=== PATIENT | male | born 1995 | race Caucasian/White ===

== ENCOUNTER 2019-01-08 08:54 | Emergency (ER) | payer SELFPAY ==
[2019-01-08 09:11] VITALS: BMI 24.4
[2019-01-08] MEDS ORDERED: SODIUM CHLORIDE 1,000 ML IV STA (09:26)
--- NOTE | 2019-01-08 09:30 | PDOC ---
History of Present Illness - General Chief Complaint: Pain Stated Complaint: VOMITING/DIARRHEA Time Seen by Provider: 01/08/19 09:22 History Source: Patient - History of Present Illness Timing/Duration: reports: constant Past History - Past Medical History Allergies/Adverse Reactions: Allergies Allergy/AdvReac Type Severity Reaction Status Date / Time No Known Allergies Allergy Verified 01/08/19 09:09 Home Medications: Ambulatory Orders Ondansetron HCl [Zofran] 4 mg PO Q8H #8 tablet 01/08/19 - Suicide/Smoking/Psychosocial Hx Smoking History: Never smoked Hx Alcohol Use: No Drug/Substance Use Hx: No Review of Systems - Review of Systems Constitutional: Yes: Weakness. No: Chills, Fever ABD/GI: Yes: Diarrhea, Nausea, Vomiting. No: Blood Streaked Bowels, Rectal Bleeding, Abdominal cramping, Tarry Stools *Physical Exam - Vital Signs Last Vital Signs Temp Pulse Resp BP Pulse Ox 98.6 F 107 H 18 133/65 96 01/08/19 09:08 01/08/19 09:08 01/08/19 09:08 01/08/19 09:08 01/08/19 09:08 - Physical Exam General Appearance: Yes: Appropriately Dressed. No: Apparent Distress HEENT: positive: Normal Voice Neck: positive: Supple Respiratory/Chest: negative: Respiratory Distress Gastrointestinal/Abdominal: positive: Normal Bowel Sounds, Soft. negative: Tender, Distended, Guarding Integumentary: positive: Dry, Warm Neurologic: positive: Fully Oriented, Alert, Normal Mood/Affect ED Treatment Course - LABORATORY CBC & Chemistry Diagram: 01/08/19 09:40 01/08/19 09:40 Medical Decision Making - Medical Decision Making 01/08/19 09:27 23-year-old male, denies any past medical history, here with nausea, vomiting and diarrhea since yesterday. Patient states has had numerous episodes of non- bloody vomitus and non-bloody watery diarrhea and now feels weak. No abdominal pain, fever or chills. Patient recently released from [facility]. Denies unusual food, sick contacts or antibiotic use See exam N/V/D M/l viral, no abd pain to suspect appy at this time Recently released from [facility] Exam remarkable for mildly lethargic and tachy to 107, abd benign -zofran -IVF -labs -reassess 01/08/19 10:52 Mild leukocytosis of 13, rest of labs unremarkable. On reassessment, patient reports feeling significantly better and was able to tolerate po here. Abdomen remains benign on repeat exam. Stable for discharge with supportive treatment. Strict return precautions given *DC/Admit/Observation/Transfer Diagnosis at time of Disposition: Nausea and vomiting Qualifiers: Vomiting type: vomiting of fecal matter Qualified Code(s): R11.13 - Vomiting of fecal matter Diarrhea Qualifiers: Diarrhea type: unspecified type Qualified Code(s): R19.7 - Diarrhea, unspecified - Discharge Dispostion Disposition: HOME Condition at time of disposition: Improved - Prescriptions Prescriptions: Ondansetron HCl [Zofran] 4 mg PO Q8H #8 tablet - Referrals - Patient Instructions Printed Discharge Instructions: Viral Gastroenteritis Additional Instructions: You possibly have a viral illness, which can run its course, before he gets better. Treatment is rest, maintaining adequate hydration and taking Zofran as needed for nausea. If symptoms persist and/or worsen, especially if you develop abdominal pain, please return to the ED - Post Discharge Activity
[2019-01-08 09:51] LABS: BASO % 0.1 % (0-2.0); EOS % 1.8 % (0-4.5); HEMOGLOBIN 15.3 GM/dL (11.7-16.9); LYMPH % 10.7 % (8-40); MCH 28.9 pg (25.7-33.7); MCHC 33.2 g/dl (32.0-35.9); MEAN PLT VOLUME 7.8 fl (7.5-11.1); MONO % 9.2 % (3.8-10.2); NEUT % 78.2 % (42.8-82.8); PLATELET COUNT 203 K/MM3 (134-434); RBC 5.28 M/mm3 (4.00-5.60); RDW 13.7 % (11.9-15.9); WHITE BLOOD COUNT 13.9 K/mm3 (4.0-10.0)
[2019-01-08 10:20] LABS: ALBUMIN 4.2 g/dl (3.4-5.0); BILIRUBIN,TOTAL 0.9 mg/dL (0.2-1); CALCIUM 9.2 mg/dL (8.5-10.1); CREATININE 0.8 mg/dL (0.55-1.3); POTASSIUM 3.9 mmol/L (3.5-5.1); TOT PROT 7.3 g/dl (6.4-8.2)
[2019-01-08 10:59] VITALS: BP 118/59; PULSE 87; TEMP 98
== END 2019-01-08 11:00 | disposition home or self-care (01) ==
LOC: JERFT 08:54
PROC: 3E0337Z Introduction of Electrolytic and Water Balance Substance into Peripheral Vein, Percutaneous Approach (ICD-10-PCS; principal; 2019-01-08)
DX: A08.4 Viral intestinal infection, unspecified (principal); B97.89 Other viral agents as the cause of diseases classified elsewhere
CPT/HCPCS: 36415; 80053; 85025; 99282-25; J7030

== ENCOUNTER 2019-06-23 19:13 | Emergency (ER) | payer OTHER ==
[2019-06-23 19:31] VITALS: BP 99/58; PULSE 121; TEMP 99.1; BMI 23.1
[2019-06-23] MEDS ORDERED: IBUPROFEN 600 MG TABLET (FP) PO ONE (19:58)
[2019-06-23] MEDS ORDERED: IBUPROFEN 400 MG TABLET (FP) PO ONE (19:59)
--- NOTE | 2019-06-23 20:01 | PDOC ---
History of Present Illness - General Chief Complaint: Wound Stated Complaint: ABSCESS Time Seen by Provider: 06/23/19 19:57 - History of Present Illness Initial Comments: 06/23/19 20:00 24-year-old male without comorbidities presents for evaluation of left buttock irritation x3 days without systemic symptoms. Past History - Past Medical History Allergies/Adverse Reactions: Allergies Allergy/AdvReac Type Severity Reaction Status Date / Time No Known Allergies Allergy Verified 06/23/19 19:31 Home Medications: Ambulatory Orders Ondansetron HCl [Zofran] 4 mg PO Q8H #8 tablet 01/08/19 Cephalexin [Keflex] 500 mg PO QID #40 capsule 06/23/19 Ibuprofen [Motrin -] 600 mg PO TID #30 tablet 06/23/19 Sulfamethoxazole/Trimethoprim [Bactrim Ds -] 1 tab PO BID #14 tablet 06/23/19 COPD: No - Immunization History Immunization Up to Date: Yes - Psycho Social/Smoking Cessation Hx Smoking History: Current every day smoker Have you smoked in the past 12 months: Yes Number of Cigarettes Smoked Daily: 7 Information on smoking cessation initiated: Yes Hx Alcohol Use: No Drug/Substance Use Hx: Yes Review of Systems - Review of Systems Constitutional: No: Fever *Physical Exam - Vital Signs Last Vital Signs Temp Pulse Resp BP Pulse Ox 99.1 F 121 H 18 99/58 L 100 06/23/19 19:28 06/23/19 19:28 06/23/19 19:28 06/23/19 19:28 06/23/19 19:28 - Physical Exam Comments: 06/23/19 20:00 There is about a 6 cm circumferential erythemic firm area with out fluctuance on the left buttocks Medical Decision Making - Medical Decision Making 06/23/19 20:00 Firm nonfluctuant area on the left buttocks with surrounding cellulitis. Will place on Bactrim and Keflex. Abscess forming encourage warm compresses p.o. antibiotics and general surgery follow-up Discharge - Discharge Information Problems reviewed: Yes Clinical Impression/Diagnosis: Abscess Condition: Stable Disposition: HOME - Admission No - Additional Discharge Information Prescriptions: Cephalexin [Keflex] 500 mg PO QID #40 capsule Ibuprofen [Motrin -] 600 mg PO TID #30 tablet Sulfamethoxazole/Trimethoprim [Bactrim Ds -] 1 tab PO BID #14 tablet - Follow up/Referral Referrals: Jerry See MD [Staff Physician] - - Patient Discharge Instructions Additional Instructions: Warm compresses 5-6 times a day. Please take the antibiotics and Motrin as directed. Return to the emergency room for worsening symptoms. Without fail in 2 to 3 days please follow-up with general surgery for further evaluation and treatment options. Your abscess will most likely need to be drained however it is not ready to be drained today. The warm compresses will help to bring the infection to the surface allowing the abscess to be drained. - Post Discharge Activity
== END 2019-06-23 20:07 | disposition home or self-care (01) ==
LOC: JERFT 19:13 → JER 19:13 → JERFT 20:07
DX: L02.31 Cutaneous abscess of buttock (principal); F17.210 Nicotine dependence, cigarettes, uncomplicated
CPT/HCPCS: 99281-25

== ENCOUNTER 2019-06-28 18:45 | Inpatient (IN) | payer OTHER ==
[2019-06-28 19:01] VITALS: BMI 23.1
[2019-06-28] MEDS ORDERED: VANCOMYCIN 1 GM in D5W (PRE-DOCKED) 1,000 MG/250 ML IVPB ONE (20:04)
--- NOTE | 2019-06-28 20:06 | PDOC ---
Attending Attestation - Resident Resident Name: Shannan Connolly - ED Attending Attestation I have performed the following: I have examined & evaluated the patient, The case was reviewed & discussed with the resident, I agree w/resident's findings & plan, Exceptions are as noted - HPI HPI: 06/28/19 20:05 24-year-old male presents with left buttocks abscess. He had been seen here in June 23 for the same abscess and had taken Keflex and Bactrim with no improvement. He still has pain and low-grade fevers - Physicial Exam PE: 06/28/19 20:06 Tall,slender 24 yo male p/e left buttocks abscess head ncat neck supple lungs cta b/l cvs [id number] abd nontender left buttocks 6cm x 5 cm indurated wound,+ erythematous and tender neuro axox3,no focal neuro deficits 06/28/19 20:32 - Medical Decision Making 06/28/19 20:10 pt has been taking keflex and bactrim for 6 days with no improvement in his abscess plan ; admit for IV antibiotics
[2019-06-28] MEDS ORDERED: VANCOMYCIN 1 GRAM (PRE-DOCKED) 1,000 MG/250 ML BAG IVPB ONE (20:10)
[2019-06-28] MEDS ORDERED: PIPERACILLIN/TAZOB 3.375 GM 3.375 GM/50 ML BAG IVPB ONE (20:11)
--- NOTE | 2019-06-28 20:13 | PDOC ---
History of Present Illness - General Chief Complaint: Wound Stated Complaint: ABCESS ON REAR-END Time Seen by Provider: 06/28/19 19:50 - History of Present Illness Initial Comments: 06/28/19 20:06 24 yo M PMH asthma, presenting with L buttock abscess. Notably, was here with same, started on Keflex and Bactrim, recommended to see surgeon outpatient. Patient reportedly taking Keflex and Bactrim without alleviation of symptoms, states that abscess has slightly increased in size. Has not seen a surgeon yet 2/2 insurance issues, but called his company today and now has multiple numbers. Endorses fevers and chills. Past History - Past Medical History Allergies/Adverse Reactions: Allergies Allergy/AdvReac Type Severity Reaction Status Date / Time No Known Allergies Allergy Verified 06/28/19 19:00 Home Medications: Ambulatory Orders Cephalexin [Keflex] 500 mg PO QID #40 capsule 06/23/19 Ibuprofen [Motrin -] 600 mg PO TID #30 tablet 06/23/19 Sulfamethoxazole/Trimethoprim [Bactrim Ds -] 1 tab PO BID #14 tablet 06/23/19 COPD: No - Immunization History Immunization Up to Date: Yes - Psycho Social/Smoking Cessation Hx Smoking History: Current every day smoker Have you smoked in the past 12 months: Yes Number of Cigarettes Smoked Daily: 12 Information on smoking cessation initiated: No Hx Alcohol Use: No Drug/Substance Use Hx: No Review of Systems - Review of Systems Able to Perform ROS?: Yes Constitutional: Yes: Chills, Fever. No: Diaphoresis, Weakness HEENTM: No: Recent change in vision, Double Vision, Tinnitus, Hearing Loss, Throat Swelling, Difficulty Swallowing Respiratory: No: Cough, Orthopnea, Shortness of Breath Cardiac (ROS): No: Chest Pain, Edema, Irregular Heart Rate, Chest Tightness ABD/GI: No: Constipated, Diarrhea, Nausea, Vomiting : No: Flank Pain Musculoskeletal: No: Back Pain, Muscle Weakness Neurological: No: Headache, Numbness, Tingling, Weakness, Dizziness *Physical Exam - Vital Signs Last Vital Signs Temp Pulse Resp BP Pulse Ox 99.8 F H 100 H 20 118/61 100 06/28/19 19:53 06/28/19 19:53 06/28/19 19:53 06/28/19 19:53 06/28/19 19:53 - Physical Exam Comments: 06/28/19 20:10 Gen: well-developed, well-nourished, mild distress Neuro: AAOX4, CN II-XII intact, FTN intact, EOMI, PERRLA, 5/5 strength, SILT HEENT: atraumatic, normocephalic Neck: trachea midline, supple CV: tachycardic, regular rhythm, no murmurs, rubs, or gallops Pulm: CTA b/l, no wheezing Abd: soft, non-distended, non-tender MSK: full ROM, intact pulses Extr: no edema, no deformities Skin: hot, dry, 5X6 cm hard, non-fluctuant, erythematous and tender abscess on L buttock ED Treatment Course - LABORATORY CBC & Chemistry Diagram: 06/28/19 20:39 06/28/19 20:39 Medical Decision Making - Medical Decision Making 06/28/19 20:13 Patient with abscess, failed outpatient treatment. - CBC, CMP - coags - T+S - blood cultures - UA/UC - vanc/piptazo - Ofirmev - admit 06/28/19 20:43 Patient with vomiting, giving Zofran 4mg 06/28/19 21:32 WBC 15.1. 06/28/19 23:01 EKG normal sinus at 96 bpm. Discharge - Discharge Information Problems reviewed: Yes Clinical Impression/Diagnosis: Abscess - Follow up/Referral - Patient Discharge Instructions - Post Discharge Activity
[2019-06-28] MEDS ORDERED: PIPERACILLIN/TAZOB 3.375 GM 3.375 GM in DEXTROSE 5%-WATER - 50 ML IVPB SCH (20:15)
[2019-06-28] MEDS ORDERED: ACETAMINOPHEN 1000 MG/100 ML VIAL (NON FORMULARY) IVPB ONE (20:39)
[2019-06-28] MEDS ORDERED: ONDANSETRON 4 MG/2 ML VIAL IVPUSH ONE (20:42)
[2019-06-28] MEDS ORDERED: ACETAMINOPHEN INJECTION 100 ML IVPB ONE (20:49)
[2019-06-28] MEDS ORDERED: ONDANSETRON 4 MG/2 ML VIAL ONE (20:49)
[2019-06-28 20:53] LABS: BASO % 0.6 % (0-2.0); EOS % 1.8 % (0-4.5); HEMATOCRIT 39.8 % (35.4-49); LYMPH % 15.6 % (8-40); MCH 28.6 pg (25.7-33.7); MCHC 32.7 g/dl (32.0-35.9); MEAN CELL VOLUME 87.3 fl (80-96); MEAN PLT VOLUME 7.4 fl (7.5-11.1); PLATELET COUNT 243 K/MM3 (134-434); RBC 4.56 M/mm3 (4.00-5.60); RDW 13.4 % (11.9-15.9); WHITE BLOOD COUNT 15.1 K/mm3 (4.0-10.0)
[2019-06-28 21:02] LABS: INR 1.18 (0.83-1.09)
[2019-06-28 21:24] LABS: ALBUMIN 3.7 g/dl (3.4-5.0); BILIRUBIN,TOTAL 0.3 mg/dL (0.2-1); BLOOD UREA NITROGEN 12.8 mg/dL (7-18); CALCIUM 8.8 mg/dL (8.5-10.1); CREATININE 1.1 mg/dL (0.55-1.3); TOT PROT 6.9 g/dl (6.4-8.2)
[2019-06-28] MEDS ORDERED: SODIUM CHLORIDE 0.9% 500 ML INFUS.BAG IV ONE (22:29)
[2019-06-28] MEDS ORDERED: SODIUM CHLORIDE 0.9% 1000 ML INFUS.BAG IV SCH (23:00)
--- NOTE | 2019-06-28 23:02 | PN ---
Teaching Attending Note Name of Resident: Praveena Lawrence ATTENDING PHYSICIAN STATEMENT I saw and evaluated the patient. I reviewed the resident's note and discussed the case with the resident. I agree with the resident's findings and plan as documented. SUBJECTIVE: 24-year-old male, Smoker with asthma presented with left buttock abscess. He was here on 06/13/2019 with a similar abscess and discharged on oral Keflex and Bactrim. It was recommended to him to see a surgeon outpatient for drainage But he did not follow-up. Patient reported compliance with Keflex and Bactrim without alleviation of his abscess. He states that his abscess has increased in size. OBJECTIVE: Last Vital Signs Temp Pulse Resp BP Pulse Ox 98.6 F 72 18 94/48 L 99 06/28/19 23:09 06/28/19 23:09 06/28/19 23:09 06/28/19 23:09 06/28/19 23:09 GENERAL: Well developed, well nourished. Awake and alert. No acute distress. HEENT: Normocephalic, atraumatic. PERRLA, EOMI. No conjunctival pallor. Sclera are non- icteric. Moist mucous membranes. Oropharynx is clear. NECK: Supple. Full ROM. No JVD. Carotid pulses 2+ and symmetric, without bruits. No thyromegaly. No lymphadenopathy. CARDIOVASCULAR: Regular rate and rhythm. No murmurs, rubs, or gallops. Distal pulses are 2+ and symmetric. PULMONARY: No evidence of respiratory distress. Lungs clear to auscultation bilaterally. No wheezing, rales or rhonchi. ABDOMINAL: Soft. Non-tender. Non-distended. No rebound or guarding. No organomegaly. Normoactive bowel sounds. MUSCULOSKELETAL Normal range of motion at all joints. No bony deformities or tenderness. No CVA tenderness. EXTREMITIES: Left buttock -fluctuant, Erythematous, Tender lesion. SKIN: Warm and dry. Normal capillary refill. No rashes. No jaundice. PSYCHIATRIC: Cooperative. Good eye contact. Appropriate mood and affect. Abnormal Lab Results 06/28/19 06/28/19 06/28/19 20:39 20:39 20:39 WBC 15.1 H MPV 7.4 L Absolute Neuts (auto) 11.3 H PT with INR 14.00 H INR 1.18 H Chloride 108 H Anion Gap 7 L AST 11 L Alkaline Phosphatase 39 L Imaging reviewed ASSESSMENT AND PLAN: 24-year-old male with sepsis secondary to left buttock abscess with surrounding cellulitis. Leukocytosis, tachycardia, low-grade fever. Lactic acid was normal. [facility] antibiotic therapy with vancomycin and Zosyn Infectious disease evaluation Surgery evaluation Ultrasound of left buttock to evaluate size of abscess Send A1c and HIV serology Advised smoking cessation otherwise would be difficult for wound to heal Heparin subcu for DVT prophylaxis
--- NOTE | 2019-06-28 23:29 | HP ---
CHIEF COMPLAINT: Abscess L buttock PCP: none HISTORY OF PRESENT ILLNESS: 24 y/o M w/ pmhx of asthma and R sided buttock abscess (4 years ago, drained at [facility]) presenting to ED compaining of L buttocks abscess. He was here on for the abscess, started on Keflex and Bactrim and recommended to follow up with surgeon as outpatient but did not due to insurance issues. Pt also complaining of L buttocks pain with numbness and tinging of L leg, fever, CABRERA, and chills. Pt rates pain as 10/10. His pain is improved with warm baths and worsened by sitting. Pt denies SOB, chest pain, abdominal pain, N/V/D, urinary changes or trauma to the area. Denies having diabetes. 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 Living: pt lives with his girlfriend Allergies Blue cheese and Grapes: Reports they cause itching No Known Allergies Allergy (Verified 06/28/19 19:00) HOME MEDICATIONS: Home Medications Medication Instructions Recorded Cephalexin [Keflex] 500 mg PO QID #40 capsule 06/23/19 Ibuprofen [Motrin -] 600 mg PO TID #30 tablet 06/23/19 Sulfamethoxazole/Trimethoprim 1 tab PO BID #14 tablet 06/23/19 [Bactrim Ds -] REVIEW OF SYSTEMS CONSTITUTIONAL: fever, chills, Absent: diaphoresis, generalized weakness, malaise, loss of appetite, weight change HEENT: Absent: rhinorrhea, nasal congestion, throat pain, throat swelling, difficulty swallowing, mouth swelling, ear pain, eye pain, visual changes CARDIOVASCULAR: Absent: chest pain, syncope, palpitations, irregular heart rate, lightheadedness , peripheral edema RESPIRATORY: Absent: cough, shortness of breath, dyspnea with exertion, orthopnea, wheezing, stridor, hemoptysis GASTROINTESTINAL: Absent: abdominal pain, abdominal distension, nausea, vomiting, diarrhea, constipation, melena, hematochezia GENITOURINARY: Absent: dysuria, frequency, urgency, hesitancy, hematuria, flank pain, genital pain MUSCULOSKELETAL: Absent: myalgia, arthralgia, joint swelling, back pain, neck pain SKIN: painful abcess on L buttock Absent: rash, itching, pallor HEMATOLOGIC/IMMUNOLOGIC: Absent: easy bleeding, easy bruising, lymphadenopathy, frequent infections ENDOCRINE: Absent: unexplained weight gain, unexplained weight loss, heat intolerance, cold intolerance NEUROLOGIC: headache, numbness and tingling in L leg Absent: focal weakness or paresthesias, dizziness, unsteady gait, seizure, mental status changes, bladder or bowel incontinence PSYCHIATRIC: Absent: anxiety, depression, suicidal or homicidal ideation, hallucinations. PHYSICAL EXAMINATION Vital Signs - 24 hr 06/28/19 06/28/19 18:55 19:53 Temperature 100.1 F H 99.8 F H Pulse Rate 140 H Pulse Rate [ 100 H Right Apical] Respiratory 20 20 Rate Blood Pressure 115/76 Blood Pressure 118/61 [Left Arm] O2 Sat by Pulse 98 100 Oximetry (%) GENERAL: Awake, alert, and fully oriented, in no acute distress. HEAD: Normal with no signs of trauma. EYES: Pupils equal, round and reactive to light, extraocular movements intact, sclera anicteric, conjunctiva clear. No lid lag. EARS, NOSE, THROAT: Ears normal, nares patent, oropharynx clear without exudates. Moist mucous membranes. NECK: Normal range of motion, supple without lymphadenopathy, JVD, or masses. LUNGS: Breath sounds equal, clear to auscultation bilaterally. No wheezes, and no crackles. No accessory muscle use. HEART: Regular rate and rhythm, normal S1 and S2 without murmur, rub or gallop. ABDOMEN: Soft, nontender, not distended, normoactive bowel sounds, no guarding, no rebound, no masses. No hepatomegaly or splenomegaly. MUSCULOSKELETAL: Normal range of motion at all joints. No bony deformities or tenderness. No CVA tenderness. UPPER EXTREMITIES: 2+ pulses, warm, well-perfused. No cyanosis. No clubbing. No peripheral edema. LOWER EXTREMITIES: 2+ pulses, warm, well-perfused. No calf tenderness. No peripheral edema. NEUROLOGICAL: Cranial nerves II-XII intact. Normal speech. PSYCHIATRIC: Cooperative. Good eye contact. Appropriate mood and affect. SKIN: Warm, dry, normal turgor, no rashes or lesions noted, normal capillary refill. 6cm x 5cm abscess on L buttock with overlaying cellulitis. TTP, firm and not fluctuant with 3 pustule heads visible and multiple open comedones present in the hip area. Laboratory Results - last 24 hr 06/28/19 06/28/19 06/28/19 20:39 20:39 20:39 WBC 15.1 H RBC 4.56 Hgb 13.0 Hct 39.8 MCV 87.3 MCH 28.6 MCHC 32.7 RDW 13.4 Plt Count 243 MPV 7.4 L Absolute Neuts (auto) 11.3 H Neutrophils % 75.0 Lymphocytes % 15.6 D Monocytes % 7.0 Eosinophils % 1.8 Basophils % 0.6 D Nucleated RBC % 0 PT with INR 14.00 H INR 1.18 H PTT (Actin FS) 31.0 Sodium 141 Potassium 4.0 Chloride 108 H Carbon Dioxide 26 Anion Gap 7 L BUN 12.8 Creatinine 1.1 Est GFR (CKD-EPI)AfAm 108.32 Est GFR (CKD-EPI)NonAf 93.46 Random Glucose 92 Calcium 8.8 Total Bilirubin 0.3 AST 11 L ALT 16 Alkaline Phosphatase 39 L Total Protein 6.9 Albumin 3.7 Blood Type Antibody Screen 06/28/19 20:39 WBC RBC Hgb Hct MCV MCH MCHC RDW Plt Count MPV Absolute Neuts (auto) Neutrophils % Lymphocytes % Monocytes % Eosinophils % Basophils % Nucleated RBC % PT with INR INR PTT (Actin FS) Sodium Potassium Chloride Carbon Dioxide Anion Gap BUN Creatinine Est GFR (CKD-EPI)AfAm Est GFR (CKD-EPI)NonAf Random Glucose Calcium Total Bilirubin AST ALT Alkaline Phosphatase Total Protein Albumin Blood Type A POSITIVE Antibody Screen Negative ASSESSMENT/PLAN: 24 y/o M w/ pmhx of asthma and R sided buttock abscess (4 years ago, drained at [facility]) presenting to ED compaining of L buttocks abscess with surrounding cellulitis. # Sepsis 2/2 L buttock abscess with surrounding cellulitis- Pt with leukocytosis (15.1), tachycardia (~140 on admission) and low grade fever. LA was normal. - continue vanc/ zosyn 3.375g q6h - obtain vanc trough before 4th dose - u/s L buttock to evaluate size of abscess and ID any fluid collections that can be drained - Send A1c - Send HIV serology if pt consents - obtain 2nd set blood cx - surgery consult, Dr. Puente, appreciate recommendations - ID consult, Dr. Smith, appreciate recommendations # FEN - NS@125cc/h - replete PRN - regular diet #PPx - Hep SQ TID #Dispo- admit to med-surg Visit type - Emergency Visit Emergency Visit: Yes ED Registration Date: 06/28/19 Care time: The patient presented to the Emergency Department on the above date and was hospitalized for further evaluation of their emergent condition. - New Patient This patient is new to me today: Yes Date on this admission: 06/29/19 - Critical Care Critical Care patient: No ATTENDING PHYSICIAN STATEMENT I saw and evaluated the patient. I reviewed the resident's note and discussed the case with the resident. I agree with the resident's findings and plan as documented. SUBJECTIVE: OBJECTIVE: ASSESSMENT AND PLAN:
[2019-06-28] MEDS ORDERED: SODIUM CHLORIDE 1,000 ML IV SCH (23:30)
[2019-06-29] MEDS ORDERED: DEXTROSE 5%-WATER - 50 ML IVPB ONE ×2 (02:27→09:12)
[2019-06-29] MEDS ORDERED: PIPERACILLIN/TAZOBACTAM 3.375 GM VIAL IVPB ONE ×2 (02:27→09:12)
[2019-06-29] MEDS ORDERED: PIPERACILLIN/TAZOB 3.375 GM 3.375 GM in DEXTROSE 5%-WATER - 50 ML IVPB SCH (03:00)
[2019-06-29] MEDS: PIPERACILLIN/TAZOB 3.375 GM 3.375 GM in DEXTROSE 5%-WATER - 50 ML IVPB SCH ×2 (03:15→10:43)
[2019-06-29] MEDS: HEPARIN NA (PORCINE) 5,000 UNITS/ML 1ML VIAL SQ SCH ×2 (06:11→15:37)
--- NOTE | 2019-06-29 09:19 | EKG ---
Test Reason : Blood Pressure : / mmHG Vent. Rate : 096 BPM Atrial Rate : 096 BPM P-R Int : 128 ms QRS Dur : 100 ms QT Int : 362 ms P-R-T Axes : 054 051 049 degrees QTc Int : 457 ms NORMAL SINUS RHYTHM NONSPECIFIC T WAVE ABNORMALITY ABNORMAL ECG NO PREVIOUS ECGS AVAILABLE Confirmed by MD Klever, Bruce ([id number]) on 06/29/2019 9:19:17 AM Referred By: Confirmed By:Bruce Ernst MD
[2019-06-29] MEDS ORDERED: VANCOMYCIN 1 GM in D5W (PRE-DOCKED) 1,000 MG/250 ML IVPB SCH (10:00)
[2019-06-29] MEDS ORDERED: NICOTINE 7 MG/24 HOURS TOPICAL PATCH TD SCH (10:00)
[2019-06-29] MEDS ORDERED: VANCOMYCIN HCL 1,250 MG in DEXTROSE 5%-WATER - 250 ML IVPB ONE (10:00)
[2019-06-29] MEDS ORDERED: ACETAMINOPHEN 325 MG TABLET (FP) PO PRN ×2 (10:55→14:37)
[2019-06-29] MEDS ORDERED: traMADol HCL 50 MG TABLET PO PRN (10:55)
--- NOTE | 2019-06-29 11:51 | PN ---
Progress Note (short form) - Note Progress Note: ID CONSULT DICTATED SOFT TISSUE ABSCESS L BUTTOCK R/O SEPSIS SECONDARY TO ABSCESS AWAIT C/S SURGICAL EVALUATION FOR I&D EMPIRIC VANCO/CEFTRIAXONE/FLAGYL
[2019-06-29] MEDS ORDERED: AMPICILLIN NA/SULBACTAM NA 3 GM in SODIUM CHLORIDE 100 ML IVPB SCH (12:00)
[2019-06-29] MEDS ORDERED: CEFTRIAXONE 2 GM in DEXTROSE 5%-WATER 100 ML IVPB SCH (12:00)
[2019-06-29] MEDS ORDERED: VANCOMYCIN HCL 1,250 MG in DEXTROSE 5%-WATER - 250 ML IVPB SCH (12:00)
--- NOTE | 2019-06-29 12:25 | CONSULT ---
- Consultation REQUESTING PROVIDER: Jack Foster CONSULT REQUEST: We have been asked to surgically evaluate this patient for management of an ABSSSI of the left buttocks. PCP:Judy Liang HISTORY OF PRESENT ILLNESS: CTSP for pain and swelling and a soft tissue mass of the left buttocks of 2 weeks duration which failed outpatient tx. for an abscess PMHx: right buttock abscess PSHx: I and D right buttock abscess Home Medications Medication Instructions Recorded Cephalexin [Keflex] 500 mg PO QID #40 capsule 06/23/19 Ibuprofen [Motrin -] 600 mg PO TID #30 tablet 06/23/19 Sulfamethoxazole/Trimethoprim 1 tab PO BID #14 tablet 06/23/19 [Bactrim Ds -] Allergies Allergy/AdvReac Type Severity Reaction Status Date / Time No Known Allergies Allergy Verified 06/28/19 19:00 REVIEW OF SYSTEMS: CONSTITUTIONAL: Present: fever, chills, diaphoresis, generalized weakness, malaise CARDIOVASCULAR: Absent: chest pain, syncope, palpitations, irregular heart rate, lightheadedness , peripheral edema RESPIRATORY: Absent: cough, shortness of breath, dyspnea with exertion, wheezing, stridor, hemoptysis GASTROINTESTINAL: Absent: abdominal pain, abdominal distension, nausea, vomiting, diarrhea, constipation, melena, hematochezia GENITOURINARY: Absent: dysuria, frequency, urgency, hesitancy, hematuria, flank pain, genital pain MUSCULOSKELETAL: Absent: myalgia, arthralgia, joint swelling, back pain, neck pain SKIN: Present: rash, itching, HEMATOLOGIC/IMMUNOLOGIC: Absent: easy bleeding, easy bruising, lymphadenopathy NEUROLOGIC: Absent: headache, focal weakness, paresthesias, dizziness, unsteady gait, seizure, mental status changes, bladder or bowel incontinence PSYCHIATRIC: Absent: anxiety, depression, suicidal or homicidal ideation, hallucinations. PHYSICAL EXAM: GENERAL: Awake, alert, and fully oriented, in no acute distress. HEAD: Normal with no signs of trauma. EYES: sclera anicteric, conjunctiva clear. NECK: Normal ROM, supple without lymphadenopathy, JVD, or masses. LUNGS: Clear to auscultation bilat anteriorly. No wheezes, and no crackles. No accessory muscle use. HEART: Regular rate and rhythm. No murmurs ABDOMEN: Soft, nontender, not distended, normoactive bowel sounds, no guarding, no rebound, no masses. No organomegaly. MUSCULOSKELETAL: Normal ROM at all joints. No bony deformities or tenderness. No CVA tenderness. UPPER EXTREMITIES: 2+ pulses, warm, well-perfused. No cyanosis. Cap refill <2 seconds. No peripheral edema. LOWER EXTREMITIES: 2+ pulses, warm, well-perfused. No calf tenderness. No peripheral edema. NEUROLOGICAL: Normal speech, gait not observed. PSYCH: Cooperative. Good eye contact. Appropriate mood and affect. SKIN: ABSSSI of the left buttock c/w an abscess Vital Signs Temperature 98.8 F 06/29/19 07:00 Pulse Rate 82 06/29/19 07:00 Respiratory Rate 20 06/29/19 07:00 Blood Pressure 117/54 L 06/29/19 07:00 O2 Sat by Pulse Oximetry (%) 99 06/29/19 01:35 Lab Results WBC 15.1 K/mm3 (4.0-10.0) H 06/28/19 20:39 RBC 4.56 M/mm3 (4.00-5.60) 06/28/19 20:39 Hgb 13.0 GM/dL (11.7-16.9) 06/28/19 20:39 Hct 39.8 % (35.4-49) 06/28/19 20:39 MCV 87.3 fl (80-96) 06/28/19 20:39 MCHC 32.7 g/dl (32.0-35.9) 06/28/19 20:39 RDW 13.4 % (11.9-15.9) 06/28/19 20:39 Plt Count 243 K/MM3 (134-434) 06/28/19 20:39 Sodium 141 mmol/L (136-145) 06/28/19 20:39 Potassium 4.0 mmol/L (3.5-5.1) 06/28/19 20:39 Chloride 108 mmol/L (98-107) H 06/28/19 20:39 Carbon Dioxide 26 mmol/L (21-32) 06/28/19 20:39 Anion Gap 7 MMOL/L (8-16) L 06/28/19 20:39 BUN 12.8 mg/dL (7-18) 06/28/19 20:39 Creatinine 1.1 mg/dL (0.55-1.3) 06/28/19 20:39 Random Glucose 92 mg/dL (74-106) 06/28/19 20:39 Calcium 8.8 mg/dL (8.5-10.1) 06/28/19 20:39 Blood Type A POSITIVE 06/28/19 20:39 Antibody Screen Negative 06/28/19 20:39 INR 1.18 (0.83-1.09) H 06/28/19 20:39 Imaging reviewed IMP: abscess left buttock PLAN: I and D in OR; r/b/t/a's d/w the patient and informed consent obtained; he understands the wound will be left open to heal by secondary intention, Robert Yu MD FACS
[2019-06-29] MEDS ORDERED: DEXTROSE 5%-WATER 100 ML IVPB ONE (12:41)
[2019-06-29] MEDS ORDERED: PROPOFOL 20 ML ONE ×2 (12:47→13:35)
[2019-06-29] MEDS ORDERED: MIDAZOLAM HCL 2 MG/2 ML SINGLE DOSE VIAL ONE ×2 (12:47)
--- NOTE | 2019-06-29 12:56 | CONS ---
INFECTIOUS DISEASE CONSULTATION DATE OF CONSULTATION: DATE OF DICTATION: 06/29/2019 HISTORY OF PRESENT ILLNESS: The patient is a 24-year-old, non-diabetic male who is evaluated for left buttock abscess. He developed a painful swelling of the left buttock several days ago. He had presented to the emergency room on June 23, 2019. He was evaluated and discharged home on oral Keflex and Bactrim. Despite the Keflex and Bactrim, he developed worsening pain and swelling. He returned to the emergency room on June 28, 2019. He was noted to have large, tender swelling of the left buttock. In the emergency room, he was tachycardic with low-grade fever and elevated white blood cell count. He was empirically treated with vancomycin and Zosyn. Patient denies any traumatic injury to the buttock area. He had a similar buttock abscess of the right buttock approximately 4 years ago. He denies history of diabetes mellitus. PAST MEDICAL HISTORY: Positive for asthma and right buttock abscess. ALLERGIES: No known drug allergies. MEDICATIONS: Tylenol, Zosyn, vancomycin, Tramadol. SOCIAL HISTORY: He lives at home with a significant other. Positive smoking history. LABORATORY DATA: White count 15.1, neutrophils 75, lymphocytes 15, monocytes 7, hematocrit 39.8, platelets 245. BUN 12, creatinine 1.1. Cultures are pending. PHYSICAL EXAMINATION: General: On exam, he is awake and alert, in moderate distress secondary to left buttock pain. Vital Signs: Temperature 98.8, T-maximum 100.1, blood pressure 117/54, pulse 82 regular, respirations 20 per minute. Eyes: Sclerae are anicteric. Heart: Heart sounds S1, S2. Lungs: Clear. Abdomen: Soft and nontender. Skin: On examination of the left buttock, there is a large swelling approximately the size of a tennis ball present on the left buttock. There appear to be several pustules present in the swelling. It is very tender to touch, slightly fluctuant. No expressible pus. IMPRESSION: 1. Soft tissue abscess of the left buttock. 2. Fever, leukocytosis, tachycardia. Rule out sepsis, secondary to abscess. Await cultures. Surgical evaluation for incision and drainage. Empiric antibiotic coverage with vancomycin, ceftriaxone, and Flagyl. Will follow. Thank you for the kind referral. ALMAZ CHAIDEZ M.D. [id number]
--- NOTE | 2019-06-29 13:49 | PN ---
Teaching Attending Note Name of Resident: Glenna Santiago ATTENDING PHYSICIAN STATEMENT I saw and evaluated the patient. I reviewed the resident's note and discussed the case with the resident. I agree with the resident's findings and plan as documented. SUBJECTIVE: No fever or chills. No CABRERA . No SOb or cp . has pain in his L buttock. he was tested for HIV recently and reports it being neg. He was never tested for diabetes denies shaving the affected area. OBJECTIVE: NAd CV: RRR Lungs: CATB skin : L buttock indurated , fluctuant area ( 5x5 cm ) . tenderness to plapation . No discharge No edema on upper or lower extremities ASSESSMENT AND PLAN: 24 y/o man with h/o asthma and nicotine dependence and previous skin abscess who presented with painful area on his L buttuck, and was diagnosed with an gluteal abscess 1- Sepsis due to L Gluteal abscess : with leukocytosis . refused repeat blood work - Sx for I&D. Appreciate help - ID help appreciated, switched from vanc and zosyn to Ceftriaxone, flagyl, and vanco - follow surgical cx - follow blood cx - send A1c - follow HIV testing . 2- Asthma: PRN inhalers if needed 3- DVT px . heparin
[2019-06-29] MEDS ORDERED: ONDANSETRON 4 MG/2 ML VIAL IVPUSH PRN ×2 (14:12→14:37)
[2019-06-29] MEDS ORDERED: LACTATED RINGERS SOLUTION 1,000 ML IV SCH ×2 (14:15→14:37)
[2019-06-29] MEDS ORDERED: oxyCODONE HCL 5 MG TABLET PO PRN ×2 (14:18)
[2019-06-29] MEDS ORDERED: SODIUM CHLORIDE 1,000 ML IV SCH (14:37)
[2019-06-29 15:08] VITALS: BP 115/56
[2019-06-29 15:11] VITALS: PULSE 66; TEMP 98.3
--- NOTE | 2019-06-29 17:46 | DS ---
Physical Exam: SUBJECTIVE: Patient seen and examined. s/p I&D Pt left AMA OBJECTIVE: Vital Signs Period Temp Pulse Resp BP Sys/Desai Pulse Ox Last 24 Hr 97.8 F-100.1 F 66-140 13-20 94-126/48-76 96-100 PHYSICAL EXAM GENERAL: Awake, alert, and fully oriented, in no acute distress. HEAD: Normal with no signs of trauma. EYES: Pupils equal, round and reactive to light, extraocular movements intact, sclera anicteric, conjunctiva clear. No lid lag. EARS, NOSE, THROAT: Ears normal, nares patent, oropharynx clear without exudates. Moist mucous membranes. NECK: Normal range of motion, supple without lymphadenopathy, JVD, or masses. LUNGS: Breath sounds equal, clear to auscultation bilaterally. No wheezes, and no crackles. No accessory muscle use. HEART: Regular rate and rhythm, normal S1 and S2 without murmur, rub or gallop. ABDOMEN: Soft, nontender, not distended, normoactive bowel sounds, no guarding, no rebound, no masses. No hepatomegaly or splenomegaly. MUSCULOSKELETAL: Normal range of motion at all joints. No bony deformities or tenderness. No CVA tenderness. UPPER EXTREMITIES: 2+ pulses, warm, well-perfused. No cyanosis. No clubbing. No peripheral edema. LOWER EXTREMITIES: 2+ pulses, warm, well-perfused. No calf tenderness. No peripheral edema. NEUROLOGICAL: Cranial nerves II-XII intact. Normal speech. PSYCHIATRIC: Cooperative. Good eye contact. Appropriate mood and affect. SKIN: Warm, dry, normal turgor, no rashes or lesions noted, normal capillary refill. 6cm x 5cm abscess on L buttock with overlaying cellulitis. TTP, firm and not fluctuant with 3 pustule heads visible and multiple open comedones present in the hip area. LABS Laboratory Results - last 24 hr 06/28/19 06/28/19 06/28/19 20:39 20:39 20:39 WBC 15.1 H RBC 4.56 Hgb 13.0 Hct 39.8 MCV 87.3 MCH 28.6 MCHC 32.7 RDW 13.4 Plt Count 243 MPV 7.4 L Absolute Neuts (auto) 11.3 H Neutrophils % 75.0 Lymphocytes % 15.6 D Monocytes % 7.0 Eosinophils % 1.8 Basophils % 0.6 D Nucleated RBC % 0 PT with INR 14.00 H INR 1.18 H PTT (Actin FS) 31.0 Sodium 141 Potassium 4.0 Chloride 108 H Carbon Dioxide 26 Anion Gap 7 L BUN 12.8 Creatinine 1.1 Est GFR (CKD-EPI)AfAm 108.32 Est GFR (CKD-EPI)NonAf 93.46 Random Glucose 92 Lactic Acid Calcium 8.8 Total Bilirubin 0.3 AST 11 L ALT 16 Alkaline Phosphatase 39 L Total Protein 6.9 Albumin 3.7 Blood Type Antibody Screen HOSPITAL COURSE: Date of Admission:06/28/19 24 y/o M w/ pmhx of asthma and R sided buttock abscess (4 years ago, drained at [facility]) presenting to ED compaining of L buttocks abscess with surrounding cellulitis admitted for sepsis 2/2 buttock abscess - Pt with leukocytosis (15.1), tachycardia (~140 on admission) and low grade fever. LA was normal. Started on vanc/ zosyn 3.375g q6h u/s L buttock to evaluate size of abscess and ID any fluid collections that can be drained surgery consult- Dr. Yu performed I&D Pt left AMA I explained the risks of leaving against medical advise which included infections, worsening of conditions, illnesses, diseases, disabilities and even Pt verified understanding and he still left AMA Rx for antibiotics (Clindamycin 300 Q8H for 10 days) to complete treatment of his infection was sent to his pharmacy. Advised pt to f/u with Dr. Yu's office for wound care/post op check up Advised pt to return to [facility] for any other issues- provided numbers for Dr. Yu and [facility] and address. Date of Discharge: 06/29/19 Minutes to complete discharge: 35 Discharge Summary Problems reviewed: Yes Reason For Visit: ABSCESS Condition: Good - Instructions Diet, Activity, Other Instructions: Dr. Yu Discharge Instructions Dear HUSSEIN PINON, Post Operative Instructions Physical activity Resume your normal everyday activity as tolerated no heavy lifting or exercise until seen by your surgeon. You may walk unlimited amounts of and climb stairs. You may resume driving the car when you feel safe and comfortable behind the wheel and are no longer taking narcotics. Wound care clean wound with normal soap and water and pack with moist gauze, place clean dry dressing and secure over the top Diet There are no dietary restrictions. Eat healthy, high-fiber foods. Drink 6 to 8 glasses of liquid each day. This will assist in keeping your bowels are regular. Pain management You may take Tylenol or acetaminophen or Ibuprofen (for example, Motrin, Advil etc.) Any pain prescription medication ordered should be taken as prescribed for moderate to severe pain. Call Dr. Yu for any of the following: Severe pain not relieved by medication Fever of 101 or higher Excessive bleeding or drainage on dressing Inability to urinate If you experience any chest pain or shortness of breath please seek emergency treatment. Call the office at [phone] for a post operative appointment in 7 - 10 days. Disposition: AGAINST MEDICAL ADVICE - Home Medications Comprehensive Discharge Medication List: Ambulatory Orders Ibuprofen [Motrin -] 600 mg PO TID #30 tablet 06/23/19 Clindamycin [Cleocin -] 300 mg PO Q8H #30 capsule 06/29/19 This patient is new to me today: Yes Date on this admission: 07/04/19 Emergency Visit: Yes ED Registration Date: 06/28/19 Care time: The patient presented to the Emergency Department on the above date and was hospitalized for further evaluation of their emergent condition. Critical Care patient: No - Discharge Referral Referred to [facility] No ATTENDING PHYSICIAN STATEMENT I saw and evaluated the patient. I reviewed the resident's note and discussed the case with the resident. I agree with the resident's findings and plan as documented. SUBJECTIVE: OBJECTIVE: ASSESSMENT AND PLAN:
[2019-06-29 18:16] LABS: COCAINE, UR NEGATIVE ng/ml (CUTOFF=300); METHADONE, UR NEGATIVE ng/ml (CUTOFF=300); OPIATES, URI NEGATIVE ng/ml (CUTOFF=300); PHENCYCLIDINE,URINE NEGATIVE ng/ml (CUTOFF=25); URINE AMPHETAMINES NEGATIVE ng/ml (CUTOFF=500); URINE BARBITURATES NEGATIVE ng/ml (CUTOFF=200); URINE BENZODIAZEPINES NEGATIVE ng/ml (CUTOFF=200)
[2019-06-29] MEDS ORDERED: HEPARIN NA (PORCINE) 5,000 UNITS/ML 1ML VIAL SQ SCH (22:00)
[2019-06-30] MEDS ORDERED: VANCOMYCIN HCL 1,250 MG in DEXTROSE 5%-WATER - 250 ML IVPB SCH
--- NOTE | 2019-06-30 09:39 | OP ---
Operative Note - Note: Operative Date: 06/29/19 Pre-Operative Diagnosis: abscess left buttock Operation: incision/drainage abscess left buttock Findings: abscess left buttock Surgeon: Robert Yu Anesthesiologist/EELER: Asiya Jaeger Anesthesia: General Specimens Removed: c/s of pus Estimated Blood Loss (mls): 10
[2019-06-30] MEDS ORDERED: NICOTINE 7 MG/24 HOURS TOPICAL PATCH TD SCH (10:00)
[2019-06-30] MEDS ORDERED: CEFTRIAXONE 2 GM in DEXTROSE 5%-WATER 100 ML IVPB SCH (10:00)
--- NOTE | 2019-07-01 06:52 | OP ---
DATE OF OPERATION: 06/29/2019 PREOPERATIVE DIAGNOSIS: Abscess of the left buttock. POSTOPERATIVE DIAGNOSIS: Abscess of the left buttock. PROCEDURE PERFORMED: Incision and drainage of abscess of the left buttock. SURGEON: Robert Yu MD ANESTHESIA: General. OPERATIVE FINDINGS: There was a large abscess of the soft tissue of the left buttock. The rest of the findings were unremarkable. DESCRIPTION OF PROCEDURE: The patient was placed on the operating table in the supine position. After the induction of general anesthesia, the patient was turned to the right lateral decubitus position. The area of the abscess was prepped with Betadine and draped in sterile fashion. A time-out was taken. An incision was made with a scalpel and taken down through the skin and subcutaneous tissue. Purulent drainage was sent for culture and sensitivity. The wound was then copiously irrigated with a mixture of 50% peroxide and 50% saline. Hemostasis was secured with electrocautery and the wound further irrigated with normal saline, and then packed with 1/2-inch Iodoform gauze. Dry sterile dressings were placed, and the procedure terminated at this point. The patient was aroused from general anesthesia and transferred to the postanesthesia care unit in stable condition, awake and alert. ESTIMATED BLOOD LOSS: 10 mL. REPLACEMENT: Crystalloid. DRAINS: One-half inch packing. SPECIMEN: Culture and sensitivity of pus to Microbiology. I, Robert Yu, was physically present in the operating room from the time the patient was placed on the operating room table until he was transferred to the postanesthesia care unit in my accompaniment. Robert Yu MD [id number] MTDD
== END 2019-06-29 17:39 | disposition left against medical advice (07) | DRG 383 ==
LOC: JER 18:45 → JERBED 20:05 → J5S 06-29 02:19
PROVIDERS: ADMIT Internal Medicine; ATTEND Internal Medicine
PROC: 0J990ZX Drainage of Buttock Subcutaneous Tissue and Fascia, Open Approach, Diagnostic (ICD-10-PCS; principal; 2019-06-29 12:30)
DX: L02.31 Cutaneous abscess of buttock (principal); F19.90 Other psychoactive substance use, unspecified, uncomplicated; Z72.89 Other problems related to lifestyle; F17.210 Nicotine dependence, cigarettes, uncomplicated; D72.829 Elevated white blood cell count, unspecified; R00.0 Tachycardia, unspecified
CPT/HCPCS: 36415; 76882-TC-RT-FY; 80053; 80307; 83605; 85025; 85610; 85730; 86850; 86900; 86901; 87040; 87070; 87086; 87205; 93005; 93010; 94760; 99285-25; J0131; J7030

== ENCOUNTER 2019-08-02 17:33 | Emergency (ER) | payer OTHER ==
[2019-08-02 17:39] VITALS: BP 135/56; PULSE 81; TEMP 98.5; BMI 24.4
--- NOTE | 2019-08-02 17:40 | PDOC ---
Rapid Medical Evaluation Time Seen by Provider: 08/02/19 17:37 Medical Evaluation: Allergies Allergy/AdvReac Type Severity Reaction Status Date / Time No Known Allergies Allergy Verified 06/28/19 19:00 08/02/19 17:37 The patient presents for STD testing. States that he slept with a new person and would like to be tested. Denies penile drainage or pain Exam: Deferred, NAD Orders: HIV, GC/Chlamydia, RPR Pt to proceed to the ER for further evaluation Discharge Disposition - Diagnosis Concern about STD in male without diagnosis - Referrals - Patient Instructions - Post Discharge Activity
[2019-08-02 18:32] LABS: PH,URINE 5.5 (5.0-8.0); URINE APPEARANCE CLEAR; URINE BILIRUBIN NEGATIVE (NEGATIVE); URINE COLOR YELLOW; URINE GLUCOSE (UA) NEGATIVE (NEGATIVE); URINE KETONE TRACE (NEGATIVE); URINE LEUK ESTERASE NEGATIVE (NEGATIVE); URINE NITRITE NEGATIVE (NEGATIVE); URINE PROTEIN NEGATIVE (NEGATIVE); URINE UROBILINOGEN 0.2 mg/dL (0.2-1.0)
--- NOTE | 2019-08-02 19:20 | PDOC ---
History of Present Illness - General Chief Complaint: HIV Testing Stated Complaint: STD TESTING Time Seen by Provider: 08/02/19 17:37 History Source: Patient Exam Limitations: No Limitations - History of Present Illness Initial Comments: 08/02/19 19:21 24 year old male requesting std screening, states he had unprotected intercourse with a new partner on 4 days ago. Reports no penile discharge, genital or penile rash, no burning with urination and no scrotal pain. 08/02/19 19:24 Timing/Duration: reports: constant Quality: reports: mild Abdominal Pain Onset Location: reports: other (no pain) Pain Radiation: reports: no radiation Activities at Onset: reports: none Aggravating Factors: improves with: None Alleviating Factors: improves with: None Past History - Travel Traveled outside of the country in the last 30 days: No Close contact w/someone who was outside of country & ill: No - Past Medical History Allergies/Adverse Reactions: Allergies Allergy/AdvReac Type Severity Reaction Status Date / Time No Known Allergies Allergy Verified 08/02/19 17:40 Home Medications: Ambulatory Orders Ibuprofen [Motrin -] 600 mg PO TID #30 tablet 06/23/19 Clindamycin [Cleocin -] 300 mg PO Q8H #30 capsule 06/29/19 COPD: No - Immunization History Immunization Up to Date: Yes - Psycho Social/Smoking Cessation Hx Smoking History: Current some day smoker Have you smoked in the past 12 months: No Number of Cigarettes Smoked Daily: 12 Information on smoking cessation initiated: No Hx Alcohol Use: No Drug/Substance Use Hx: No Abd/GI Specific PMHX - Complaint Specific PMHX Colitis: No GERD: No Irritable Bowel Synd (IBS): No Pancreatitis: No Review of Systems - Review of Systems Able to Perform ROS?: Yes Is the patient limited [place] proficient: No Constitutional: No: Chills, Fever HEENTM: No: Nose Pain, Nose Congestion, Throat Swelling Respiratory: No: Orthopnea, Wheezing Cardiac (ROS): No: Lightheadedness, Palpitations ABD/GI: No: Poor Appetite, Poor Fluid Intake, Vomiting, Abdominal cramping : No: Burning, Discharge, Pain, Urgency, Testicular Swelling, Testicular Pain Musculoskeletal: No: Gout, Joint Pain, Muscle Weakness Integumentary: No: Bruising, Erythema, Flushing Neurological: No: Headache, Numbness Psychiatric: No: Stressors *Physical Exam - Vital Signs Last Vital Signs Temp Pulse Resp BP Pulse Ox 98.5 F 81 20 135/56 L 100 08/02/19 17:36 08/02/19 17:36 08/02/19 17:36 08/02/19 17:36 08/02/19 17:36 - Physical Exam General Appearance: Yes: Nourished, Appropriately Dressed HEENT: positive: TMs Normal, Pharynx Normal Neck: positive: Supple. negative: Lymphadenopathy (R), Lymphadenopathy (L) Respiratory/Chest: positive: Lungs Clear, Normal Breath Sounds Cardiovascular: positive: Regular Rhythm, Regular Rate, S1, S2 Male Genitalia: positive: other (no genital exam, refused) Extremity: positive: Normal Capillary Refill Neurologic: positive: Fully Oriented, Alert ED Treatment Course - ADDITIONAL ORDERS Additional order review: Laboratory Results 08/02/19 17:50 Urine Color Yellow Urine Appearance Clear Urine pH 5.5 Ur Specific [place] 1.027 Urine Protein Negative Urine Glucose (UA) Negative Urine Ketones Trace H Urine Blood Negative Urine Nitrite Negative Urine Bilirubin Negative Urine Urobilinogen 0.2 Ur Leukocyte Esterase Negative Medical Decision Making - Medical Decision Making 08/02/19 19:27 24 year old male requesting std screening, states he had unprotected intercourse with a new partner on 4 days ago. Reports no penile discharge, genital or penile rash, no burning with urination and no scrotal pain. std screening ordered by bernarda jones negative rapid hiv and urinalysis gc/chlamydia pending Discharge - Discharge Information Problems reviewed: Yes Clinical Impression/Diagnosis: Concern about STD in male without diagnosis Condition: Good Disposition: HOME - Admission No - Follow up/Referral - Patient Discharge Instructions Additional Instructions: Please use condoms to prevent sexually transmitted disease' follow up with primary physician for further testing - Post Discharge Activity Work/Back to School Note: Back to Work
== END 2019-08-02 19:35 | disposition home or self-care (01) ==
LOC: JER 17:33 → JERFT 17:33
DX: Z11.3 Encounter for screening for infections with a predominantly sexual mode of transmission (principal)
CPT/HCPCS: 36415; 81003; 86593; 87086; 87389; 87491; 87591; 99281-25

== ENCOUNTER 2019-09-28 10:48 | Emergency (ER) | payer OTHER ==
[2019-09-28 11:08] VITALS: BP 102/70; PULSE 108; TEMP 101; BMI 24.4
[2019-09-28] MEDS ORDERED: ACETAMINOPHEN 500 MG TABLET (FP) PO ONE (12:45)
--- NOTE | 2019-09-28 12:51 | PDOC ---
History of Present Illness - General Chief Complaint: Wound Stated Complaint: ABSCESS Time Seen by Provider: 09/28/19 12:39 - History of Present Illness Initial Comments: 09/28/19 12:46 24-year-old male without comorbidities history of abscess on the left buttocks which was I&D 8 formally in the operating room presents for evaluation of recurrence of this abscess. He has been having pain on his left buttocks for the last 3 days with an associated fever. Past History - Past Medical History Allergies/Adverse Reactions: Allergies Allergy/AdvReac Type Severity Reaction Status Date / Time No Known Allergies Allergy Verified 09/28/19 11:04 Home Medications: Ambulatory Orders Cephalexin [Keflex] 500 mg PO QID #40 capsule 09/28/19 Sulfamethoxazole/Trimethoprim [Bactrim Ds -] 1 tab PO BID #14 tablet 09/28/19 COPD: No - Immunization History Immunization Up to Date: Yes - Psycho Social/Smoking Cessation Hx Smoking History: Current every day smoker Have you smoked in the past 12 months: No Number of Cigarettes Smoked Daily: 12 Information on smoking cessation initiated: Yes Hx Alcohol Use: Yes Drug/Substance Use Hx: Yes (marijuana) Review of Systems - Review of Systems Constitutional: Yes: Fever Integumentary: Yes: Lesions *Physical Exam - Vital Signs Last Vital Signs Temp Pulse Resp BP Pulse Ox 101 F H 108 H 16 102/70 100 09/28/19 11:04 09/28/19 11:04 09/28/19 11:04 09/28/19 11:04 09/28/19 11:04 - Physical Exam 09/28/19 12:47 Left buttock cheek there is a superficial excoriation with small amount of drainage mild induration no erythema there is some warmth in the area. No fluctuance the area is about 6 cm circumferentially Medical Decision Making - Medical Decision Making 09/28/19 12:50 We will try a course of outpatient therapy with oral antibiotics and closed follow-up with either general surgery or return to the emergency room in 2 days for wound check Discharge - Discharge Information Problems reviewed: Yes Clinical Impression/Diagnosis: Cellulitis and abscess of buttock Condition: Stable Disposition: HOME - Admission No - Additional Discharge Information Prescriptions: Cephalexin [Keflex] 500 mg PO QID #40 capsule Sulfamethoxazole/Trimethoprim [Bactrim Ds -] 1 tab PO BID #14 tablet - Follow up/Referral Referrals: Robert Yu MD [Staff Physician] - - Patient Discharge Instructions Additional Instructions: Please start the antibiotics today. Take them as directed. Tylenol Motrin as directed for pain. Return to the emergency room in 2 days for wound check without fail also follow-up with general surgery in 2 to 3 days without fail for further evaluation and treatment options. If you get an appointment with general surgery in 2 days you do not need to return to the emergency room unless you have a problem. You may come back to the emergency room sooner if problems develop at any time. - Post Discharge Activity
[2019-09-28] MEDS ORDERED: ACETAMINOPHEN 500 MG TABLET (FP) ONE (12:52)
== END 2019-09-28 12:57 | disposition home or self-care (01) ==
LOC: JERFT 10:48
DX: L03.317 Cellulitis of buttock (principal); F17.210 Nicotine dependence, cigarettes, uncomplicated
CPT/HCPCS: 99281-25

== ENCOUNTER 2019-09-29 14:02 | Inpatient (IN) | payer OTHER ==
[2019-09-29 14:32] VITALS: BMI 24.4
--- NOTE | 2019-09-29 14:33 | PDOC ---
Rapid Medical Evaluation Medical Evaluation: Allergies Allergy/AdvReac Type Severity Reaction Status Date / Time No Known Allergies Allergy Verified 09/28/19 11:04 09/29/19 14:28 Pt presents for wound check of the L buttock. Had a surgical I&D by Dr. Yu in June for the same thing. Was seen in the ED yesterday and was placed on PO abx and told to come back for a wound check today. He was unable to greens picker the medication d/t cost. Pt still in pain and febrile. Exam: Deferred to provided. Pt unable to sit d/t pain. States there is active drainage. Orders: septic order set Pt to proceed to the ER for further evaluation Discharge Disposition - Diagnosis Cellulitis and abscess of buttock - Referrals - Patient Instructions - Post Discharge Activity
[2019-09-29] MEDS ORDERED: ACETAMINOPHEN 325 MG TABLET (FP) PO ONE (15:14)
[2019-09-29] MEDS ORDERED: SODIUM CHLORIDE 2,449 ML IV ONE (16:19)
[2019-09-29 16:21] LABS: BASO % 0.4 % (0-2.0); EOS % 0.1 % (0-4.5); HEMATOCRIT 44.8 % (35.4-49); HEMOGLOBIN 15.1 GM/dL (11.7-16.9); LYMPH % 21.2 % (8-40); MCHC 33.8 g/dl (32.0-35.9); MEAN CELL VOLUME 85.7 fl (80-96); MEAN PLT VOLUME 7.9 fl (7.5-11.1); MONO % 12.2 % (3.8-10.2); NEUT % 66.1 % (42.8-82.8); PLATELET COUNT 165 K/MM3 (134-434); RBC 5.23 M/mm3 (4.00-5.60); RDW 14.2 % (11.9-15.9); WHITE BLOOD COUNT 5.2 K/mm3 (4.0-10.0)
[2019-09-29 16:44] LABS: INR 1.2 (0.83-1.09); PROTHROMBIN TIME (PATIENT) 14.2 SEC (9.7-13.0)
--- NOTE | 2019-09-29 16:44 | PDOC ---
Documentation entered by Jerod Rice SCRIBE, acting as scribe for Robert Chakraborty MD. Robert Chakraborty MD: This documentation has been prepared by the Dwayne martino Xhesika, SCRIBE, under my direction and personally reviewed by me in its entirety. I confirm that the documentation accurately reflects all work, treatment, procedures, and medical decision making performed by me. Attending Attestation - Resident Resident Name: [email or web address] - ED Attending Attestation I have performed the following: I have examined & evaluated the patient, The case was reviewed & discussed with the resident, I agree w/resident's findings & plan, Exceptions are as noted - HPI HPI: 09/29/19 16:05 The patient is a 24 year old male with a significant PMH of asthma and L buttock abscess (most recent I&D by Dr. Yu 07/13) who presents to the emergency department for left buttock abscess with drainage x4 days. 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 Complaining of subjective fevers and chills now. The patient denies chest pain, shortness of breath, headache and dizziness. Denies cough, nausea, vomiting, diarrhea and constipation. Allergies: NKDA - Physicial Exam PE: 09/29/19 16:08 See resident exam - Medical Decision Making 09/29/19 16:48 24 M with recurrent buttock abscess. Now with fever and signs of systemic infection. - Labs, cultures - Dr. Yu at bedside to evaluate pt, recommends bedside I&D - Empiric IV abx
[2019-09-29 16:47] LABS: ACTIVATED PTT 35.4 SECONDS (25.2-36.5)
[2019-09-29 16:54] LABS: BILIRUBIN,TOTAL 0.4 mg/dL (0.2-1); BLOOD UREA NITROGEN 12.9 mg/dL (7-18); CALCIUM 9.1 mg/dL (8.5-10.1); CREATININE 1.1 mg/dL (0.55-1.3); POTASSIUM 3.9 mmol/L (3.5-5.1); TOT PROT 7.6 g/dl (6.4-8.2)
--- NOTE | 2019-09-29 16:59 | PDOC ---
History of Present Illness - General Chief Complaint: Abscess Boil Stated Complaint: SENT BY DR. HAQUE Time Seen by Provider: 09/29/19 15:47 History Source: Patient Exam Limitations: No Limitations - History of Present Illness Initial Comments: 24 yo M with a hx of left buttock abscess (drained by Dr. Haque 06/2019 s/p outpatient abx failure) and asthma (last exacerbation "years ago") presents to the emergency department with left buttock abscess that has been ongoing for 4 days. Per the patient, he states the pain is similar to his previous episode. He has had purulent drainage that has been ongoing for 4 days. Endorses fever and decrease fluid intake. Per the patient, he presented to the emergency department yesterday with similar complaint but was unable to use the abx and felt he was getting worse. He consulted Dr. Haque's office whose staff recommended ED presentation. The patient states the pain is sharp in nature, worsens when he sits on it, located in the left buttocks, and denies radiation. Denies the following: chills, SOB, chest pain, nausea, vomiting, dysuria, hematuria, diarrhea, abdominal pain, and leg pain/swelling. Allergies: NKDA Past History - Past Medical History Allergies/Adverse Reactions: Allergies Allergy/AdvReac Type Severity Reaction Status Date / Time No Known Allergies Allergy Verified 09/29/19 14:29 Home Medications: Ambulatory Orders Cephalexin [Keflex] 500 mg PO QID #40 capsule 09/28/19 Sulfamethoxazole/Trimethoprim [Bactrim Ds -] 1 tab PO BID #14 tablet 09/28/19 COPD: No - Immunization History Immunization Up to Date: Yes - Psycho Social/Smoking Cessation Hx Smoking History: Current some day smoker Have you smoked in the past 12 months: No Number of Cigarettes Smoked Daily: 4 Information on smoking cessation initiated: Yes Hx Alcohol Use: No Drug/Substance Use Hx: No Review of Systems - Review of Systems Able to Perform ROS?: Yes Is the patient limited Ghanaian proficient: No Constitutional: Yes: Fever. No: Chills, Diaphoresis, Weakness HEENTM: No: Eye Pain, Ear Pain, Nose Pain, Throat Pain, Mouth Pain Respiratory: No: Cough, Shortness of Breath, Hemoptysis Cardiac (ROS): No: Chest Pain, Lightheadedness, Palpitations, Chest Tightness ABD/GI: No: Constipated, Diarrhea, Nausea, Rectal Bleeding, Vomiting, Tarry Stools : No: Burning, Dysuria, Hematuria Musculoskeletal: Yes: Other (pain in the left gluteus). No: Back Pain, Joint Pain, Neck Pain Integumentary: Yes: Erythema (left gluteus). No: Bruising, Rash Neurological: No: Headache, Tingling, Tremors Psychiatric: No: Change in Appetite Endocrine: No: Unexplained Weight Loss Hematologic/Lymphatic: No: Anemia *Physical Exam - Vital Signs Last Vital Signs Temp Pulse Resp BP Pulse Ox 101.9 F H 110 H 16 124/70 99 09/29/19 14:29 09/29/19 14:29 09/29/19 14:29 09/29/19 14:09/29/19 14:29 - Physical Exam General Appearance: Yes: Nourished, Appropriately Dressed. No: Apparent Distress, Intoxicated HEENT: positive: EOMI, DAIJA, Normal Voice, Symmetrical, Pharynx Normal, Hearing Grossly Normal. negative: Pale Conjunctivae, Scleral Icterus (R), Scleral Icterus (L), Muffled/Hoarse voice, Pharyngeal Erythema, Tonsillar Exudate, Tonsillar Erythema, Nasal Congestion, Rhinorrhea, Sinus Tenderness, Excessive drooling Neck: positive: Trachea midline, Supple. negative: Tender, Lymphadenopathy (R) , Lymphadenopathy (L), Tender lateral, Tender midline Respiratory/Chest: positive: Lungs Clear, Normal Breath Sounds. negative: Chest Tender, Respiratory Distress, Accessory Muscle Use, Crackles, Rales, Rhonchi, Stridor, Wheezing Cardiovascular: positive: Regular Rhythm, Regular Rate, S1, S2. negative: Systolic Murmur Gastrointestinal/Abdominal: positive: Normal Bowel Sounds, Flat, Soft. negative : Tender, Distended, Guarding, Rebound Rectal Exam: positive: normal exam, other (1.5x1.5 cm flutuance noted at the site of previous surgery (Scar remaining) on left gluteus lateral aspect. no involvement of lauren-anal region. no erythema or skin changes noted in the perineum and pilonidal region. Active drainage occurring. ) Lymphatic: negative: Adenopathy Musculoskeletal: positive: Normal Inspection. negative: CVA Tenderness, Vertebral Tenderness Extremity: positive: Normal Capillary Refill, Normal Inspection, Normal Range of Motion. negative: Tender, Swelling, Calf Tenderness Integumentary: positive: Normal Color, Dry, Warm, Erythema (left gluteus). negative: Swelling, Ecchymosis Neurologic: positive: Fully Oriented, Alert, Normal Mood/Affect Procedures - Incision and Drainage I&D Site: Left: Buttock Betadine cleansed: Yes Anesthesia: 1% Lidocaine w/ Epi Volume(ml): 6 Blade Size: 11 Attempts: 1 Plain Packing: No Complications: none Dressing: Yes ED Treatment Course - LABORATORY CBC & Chemistry Diagram: 09/29/19 15:32 09/29/19 15:36 - ADDITIONAL ORDERS Additional order review: Laboratory Results 09/29/19 09/29/19 09/29/19 15:36 15:32 15:32 PT with INR 14.20 H INR 1.20 H PTT (Actin FS) 35.4 Sodium 135 L Potassium 3.9 Chloride 102 Carbon Dioxide 27 Anion Gap 6 L BUN 12.9 Creatinine 1.1 Est GFR (CKD-EPI)AfAm 108.32 Est GFR (CKD-EPI)NonAf 93.46 Random Glucose 83 Lactic Acid 1.0 Calcium 9.1 Total Bilirubin 0.4 AST 18 ALT 19 Alkaline Phosphatase 42 L Total Protein 7.6 Albumin 4.0 09/29/19 15:32 RBC 5.23 MCV 85.7 MCHC 33.8 RDW 14.2 MPV 7.9 Neutrophils % 66.1 Lymphocytes % 21.2 D Monocytes % 12.2 H Eosinophils % 0.1 D Basophils % 0.4 - Medications Given in the ED: ED Medications Discontinued Medications Generic Name Dose Route Start Last Admin Trade Name Freq PRN Reason Stop Dose Admin Acetaminophen 1,000 mg 09/29/19 15:14 09/29/19 15:25 Tylenol - PO 09/29/19 15:15 1,000 mg ONCE ONE Administration Medical Decision Making - Medical Decision Making 24 yo M with a hx of left buttock abscess (drained by Dr. Haque 06/2019 s/p outpatient abx failure) and asthma (last exacerbation "years ago") presents to the emergency department with left buttock abscess that has been ongoing for 4 days. Initial vitals: Initial Vital Signs Temp Pulse Resp BP Pulse Ox 101.9 F H 110 H 16 124/70 99 09/29/19 14:29 09/29/19 14:29 09/29/19 14:29 09/29/19 14:29 09/29/19 14:29 Work up: patient presents with abscess to the left buttocks. US shows a small fluid pocket with surround skin changes consistent on US with cellulitis. Per Dr. Haque (who was consulted), the patient ID was performed that expressed 2 cc of purulence. An incision was made inferior to the previous because on US this was the point of the cavity at its largest. Will start the patient on ceftriaxone, metronidazole, and vancomycin. Laboratory Tests 09/29/19 09/29/19 09/29/19 15:32 15:32 15:32 WBC 5.2 RBC 5.23 Hgb 15.1 Hct 44.8 MCV 85.7 MCH 29.0 MCHC 33.8 RDW 14.2 Plt Count 165 D MPV 7.9 Absolute Neuts (auto) 3.5 Neutrophils % 66.1 Lymphocytes % 21.2 D Monocytes % 12.2 H Eosinophils % 0.1 D Basophils % 0.4 Nucleated RBC % 0 PT with INR 14.20 H INR 1.20 H PTT (Actin FS) 35.4 Sodium Potassium Chloride Carbon Dioxide Anion Gap BUN Creatinine Est GFR (CKD-EPI)AfAm Est GFR (CKD-EPI)NonAf Random Glucose Lactic Acid 1.0 Calcium Total Bilirubin AST ALT Alkaline Phosphatase Total Protein Albumin 09/29/19 15:36 WBC RBC Hgb Hct MCV MCH MCHC RDW Plt Count MPV Absolute Neuts (auto) Neutrophils % Lymphocytes % Monocytes % Eosinophils % Basophils % Nucleated RBC % PT with INR INR PTT (Actin FS) Sodium 135 L Potassium 3.9 Chloride 102 Carbon Dioxide 27 Anion Gap 6 L BUN 12.9 Creatinine 1.1 Est GFR (CKD-EPI)AfAm 108.32 Est GFR (CKD-EPI)NonAf 93.46 Random Glucose 83 Lactic Acid Calcium 9.1 Total Bilirubin 0.4 AST 18 ALT 19 Alkaline Phosphatase 42 L Total Protein 7.6 Albumin 4.0 no white count noted patient to be admitted for IV antibiotics for abscess and cellulitis with fever and tachycardia. Patient given tylenol and NS for rehydration Discharge - Discharge Information Problems reviewed: Yes Clinical Impression/Diagnosis: Cellulitis and abscess of buttock - Follow up/Referral - Patient Discharge Instructions - Post Discharge Activity
[2019-09-29] MEDS ORDERED: CEFTRIAXONE 1,000 MG in DEXTROSE 5%-WATER - 50 ML IVPB ONE (17:00)
[2019-09-29] MEDS ORDERED: VANCOMYCIN 1 GM in D5W (PRE-DOCKED) 1,000 MG/250 ML IVPB ONE (17:00)
[2019-09-29] MEDS ORDERED: VANCOMYCIN 1 GRAM (PRE-DOCKED) 1,000 MG/250 ML BAG IVPB ONE (17:22)
[2019-09-29] MEDS ORDERED: CEFTRIAXONE 1 GM/50 ML BAG ONE (17:23)
[2019-09-29] MEDS ORDERED: CEPHALEXIN MONOHYDRATE 500 MG CAPSULE (UD) PO SCH (18:00)
[2019-09-29] MEDS ORDERED: ACETAMINOPHEN 325 MG TABLET (FP) PO PRN (18:03)
[2019-09-29] MEDS ORDERED: VANCOMYCIN 1,000 MG in DEXTROSE 5%-WATER - 250 ML IVPB SCH (18:30)
[2019-09-29] MEDS ORDERED: SODIUM CHLORIDE 1,000 ML IV SCH (18:30)
[2019-09-29] MEDS ORDERED: VANCOMYCIN 1,250 MG in DEXTROSE 5%-WATER - 250 ML IVPB SCH (18:45)
--- NOTE | 2019-09-29 18:47 | HP ---
CHIEF COMPLAINT: PAIN ON BUTTOCK PCP: Denies HISTORY OF PRESENT ILLNESS: This is a 24 y/o M with a past medical history of asthma, who presents s/p d/c from [facility] ED on PO Keflex and Bactrim for an abscess on left buttock yesterday. 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 Pt endorses having subjective fevers X 3days and a productive cough for the past wk of green sputum. Patient admits to having these abscess periodically but its never been drained prior. Pt complaining of pain in the site of his abscess but no other acute complaints. Denies any bowel/bladder complaints, cp, sob, nausea, vomiting, or weakness in extremities. Pt denies any recent sick contacts. ER course was notable for: (1)Flu swab pending, NS 100/hr (2)I&D at bedside by Sx, 135 Na (3)Tylenol for pain/fever Recent Travel: denies PAST SURGICAL HISTORY: denies Social History: Smokinppd every 3 days X 5 yrs Alcohol: occasional Drugs: Marijuana occasionally Allergies No Known Allergies Allergy (Verified 09/29/19 14:29) HOME MEDICATIONS: Home Medications Medication Instructions Recorded Cephalexin [Keflex] 500 mg PO QID #40 capsule 09/28/19 Sulfamethoxazole/Trimethoprim 1 tab PO BID #14 tablet 09/28/19 [Bactrim Ds -] REVIEW OF SYSTEMS negative except as above PHYSICAL EXAMINATION Vital Signs - 24 hr 09/29/19 09/29/19 14:29 16:00 Temperature 101.9 F H Pulse Rate 110 H Respiratory 16 Rate Blood Pressure 124/70 O2 Sat by Pulse 99 99 Oximetry (%) GENERAL: Awake, alert, and fully oriented, in no acute distress. LUNGS: Breath sounds equal, clear to auscultation bilaterally. No wheezes, and no crackles. HEART: Regular rate and rhythm, normal S1 and S2 without murmur, rub or gallop, pectus inscavatum. ABDOMEN: Soft, nontender, not distended, normoactive bowel sounds, no guarding, no rebound, no masses. LOWER EXTREMITIES: 2+ pulses, warm, well-perfused. No calf tenderness. No peripheral edema. NEUROLOGICAL: Cranial nerves II-XII intact. Normal speech. Normal gait. PSYCHIATRIC: Cooperative. Good eye contact. Appropriate mood and affect. SKIN: Warm, dry, abscess on left buttock with gauze in place s/p I&D, abscess forming on opposite buttock but has not developed a head Laboratory Results - last 24 hr 09/29/19 09/29/19 09/29/19 15:32 15:32 15:32 WBC 5.2 RBC 5.23 Hgb 15.1 Hct 44.8 MCV 85.7 MCH 29.0 MCHC 33.8 RDW 14.2 Plt Count 165 D MPV 7.9 Absolute Neuts (auto) 3.5 Neutrophils % 66.1 Lymphocytes % 21.2 D Monocytes % 12.2 H Eosinophils % 0.1 D Basophils % 0.4 Nucleated RBC % 0 PT with INR 14.20 H INR 1.20 H PTT (Actin FS) 35.4 Sodium Potassium Chloride Carbon Dioxide Anion Gap BUN Creatinine Est GFR (CKD-EPI)AfAm Est GFR (CKD-EPI)NonAf Random Glucose Lactic Acid 1.0 Calcium Total Bilirubin AST ALT Alkaline Phosphatase Total Protein Albumin 09/29/19 15:36 WBC RBC Hgb Hct MCV MCH MCHC RDW Plt Count MPV Absolute Neuts (auto) Neutrophils % Lymphocytes % Monocytes % Eosinophils % Basophils % Nucleated RBC % PT with INR INR PTT (Actin FS) Sodium 135 L Potassium 3.9 Chloride 102 Carbon Dioxide 27 Anion Gap 6 L BUN 12.9 Creatinine 1.1 Est GFR (CKD-EPI)AfAm 108.32 Est GFR (CKD-EPI)NonAf 93.46 Random Glucose 83 Lactic Acid Calcium 9.1 Total Bilirubin 0.4 AST 18 ALT 19 Alkaline Phosphatase 42 L Total Protein 7.6 Albumin 4.0 ASSESSMENT/PLAN: This is a 24 y/o M with a past medical history of asthma, who presents s/p d/c from [facility] ED on PO Keflex and Bactrim for an abscess on left buttock yesterday. 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 #Left gluteal Abscess - doubt pilonidal given location, possible hidradenitis supporitiva but not in groin or armpit - I&D Done at bedside by Dr. Yu, who will continue to follow - Tylenol 650 Q6H PRN for temps - vanco, cef, flagyl given in ED - c/w cef 2g, and flagyl 500 - Flu swab sent #Asthma - stable - denies need for RAAD in years DVT ppx: Heparin 5K TID FEN- NS 100cc/hr to help Na increase, Visit type - Emergency Visit Emergency Visit: Yes ED Registration Date: 09/29/19 Care time: The patient presented to the Emergency Department on the above date and was hospitalized for further evaluation of their emergent condition. - New Patient This patient is new to me today: Yes Date on this admission: 09/30/19 - Critical Care Critical Care patient: No ATTENDING PHYSICIAN STATEMENT I saw and evaluated the patient. I reviewed the resident's note and discussed the case with the resident. I agree with the resident's findings and plan as documented. SUBJECTIVE: OBJECTIVE: ASSESSMENT AND PLAN:
--- NOTE | 2019-09-29 18:54 | PN ---
Teaching Attending Note Name of Resident: Shashi Juárez ATTENDING PHYSICIAN STATEMENT I saw and evaluated the patient. I reviewed the resident's note and discussed the case with the resident. I agree with the resident's findings and plan as documented. Seen and examined; please see resident note for further historical information. I personally verified all wolfe historical information and exam findings. Personally interpreted all imaging and diagnostics and reviewed appropriate consults. I reviewed all labs and vital signs as per resident note and EMR as documented. I agree with the above assessment and plan unless supplemented by myself in the following. Patient presents for gluteal abscess, has not picked up antibiotics that he was prescribed for in the past. Seen by Dr. Yu who recommends bedside I&D. Pain is controlled, no new complaints. Agree with past medical surgical family and social history as delineated in the resident note 10 item review of systems completed and is negative aside from as discussed in the subjective data in my own/the resident documentation. VS, labs, imaging reviewed NAD, AAO, resting comfortably in bed. RRR s1/2 no mgr Normal muscle tone, moves all 5 extremities with normal apparent strength Neck is supple, trachea midline, no tamie LN Lungs CTAB with sym expansion NT ND +BS no tamie organomegaly CN2-12 wnl; no FND NC AT EOMI PERRLA Normal mood, appropriate behavior, euthymic affect No skin breakdown or rashes noted Assessment and plan: Patient is a 24-year-old male with a chief complaint of gluteal pain found to have a recurrent gluteal abscess, was given antibiotics in the ER yesterday but did not pick them up due to cost. He is having fevers with no white count and does not meet SIRS criteria. He will be admitted for bedside I&D with Dr. Yu,
[2019-09-29 19:48] VITALS: TEMP 98.8
[2019-09-29] MEDS ORDERED: HEPARIN NA (PORCINE) 5,000 UNITS/ML 1ML VIAL ONE (21:19)
[2019-09-29] MEDS: HEPARIN NA (PORCINE) 5,000 UNITS/ML 1ML VIAL SQ SCH (22:30)
[2019-09-30] MEDS ORDERED: VANCOMYCIN HCL 1,250 MG in DEXTROSE 5%-WATER - 250 ML IVPB SCH (06:00)
[2019-09-30] MEDS ORDERED: VANCOMYCIN 1,250 MG in DEXTROSE 5%-WATER - 250 ML IVPB SCH (06:00)
[2019-09-30] MEDS: HEPARIN NA (PORCINE) 5,000 UNITS/ML 1ML VIAL SQ SCH (06:53)
--- NOTE | 2019-09-30 08:11 | PN ---
Progress Note (short form) - Note Progress Note: SURGERY 24yo M known to surgery service for previous buttock abscess I&D, was seen and examined in the Emergency room. Pt states that he has had painful swelling in Lt buttock for a few days that has been draining and getting worse. Pt never took his abx from previous admission, due to insurance issues. Pt states he has been having intermittant fevers. Last Vital Signs Temp Pulse Resp BP Pulse Ox 98.8 F 74 20 112/68 97 09/29/19 19:40 09/29/19 19:40 09/29/19 19:40 09/29/19 19:40 09/29/19 19:40 CBC, BMP 09/29/19 15:32 09/29/19 15:36 PE: Gen: A&O X3 Resp: breathing comfortably Buttock: 2cm x 3 cm indurated area on Lt buttock with 1 cm ulcer serous drainage , non fluctuant, Rt buttock shows 2cm x 2cm indurated area, nonfluctuant. Problem List - Problems (1) Cellulitis and abscess of buttock Assessment/Plan: Plan -abscesses do not appear to need surgical drainage at this time, recommend warm compresses and abx -pt should follow up with Dr. Yu in office in 1 week. Pt seen and examined by Dr. Yu who agrees with plan. Code(s): L02.31 - CUTANEOUS ABSCESS OF BUTTOCK; L03.317 - CELLULITIS OF BUTTOCK
[2019-09-30] MEDS ORDERED: ACETAMINOPHEN 325 MG TABLET (FP) ONE (08:41)
[2019-09-30] MEDS ORDERED: CEFTRIAXONE 2 GM in DEXTROSE 5%-WATER 100 ML IVPB SCH (10:00)
[2019-09-30 10:01] LABS: URINE APPEARANCE CLEAR; URINE BILIRUBIN NEGATIVE (NEGATIVE); URINE COLOR YELLOW; URINE GLUCOSE (UA) NEGATIVE (NEGATIVE); URINE KETONE NEGATIVE (NEGATIVE); URINE LEUK ESTERASE NEGATIVE (NEGATIVE); URINE NITRITE NEGATIVE (NEGATIVE); URINE PROTEIN NEGATIVE (NEGATIVE)
[2019-09-30] MEDS ORDERED: CEFTRIAXONE 2 GM/100 ML BAG IVPB ONE (10:15)
--- NOTE | 2019-09-30 12:22 | DS ---
Physical Exam: SUBJECTIVE: Patient seen and examined. Hungry, no fevers overnight, no tachycardia. OBJECTIVE: Vital Signs Period Temp Pulse Resp BP Sys/Desai Pulse Ox Last 24 Hr 98.2 F-101.9 F 64-110 16-20 112-125/68-75 97-100 PHYSICAL EXAM GENERAL: The patient is awake, alert, and fully oriented, in no acute distress. LUNGS: Breath sounds equal, clear to auscultation bilaterally, no wheezes, no crackles, no accessory muscle use. HEART: Regular rate and rhythm, S1, S2 without murmur, rub or gallop. ABDOMEN: Soft, nontender, nondistended, normoactive bowel sounds, no guarding, no rebound, no hepatosplenomegaly, no masses. EXTREMITIES: 2+ pulses, warm, well-perfused, no edema. SKIN: gluteal abscess stable, no dc or bleed. LABS Laboratory Results - last 24 hr 09/29/19 09/29/19 09/29/19 08:30 15:32 15:32 WBC 5.2 RBC 5.23 Hgb 15.1 Hct 44.8 MCV 85.7 MCH 29.0 MCHC 33.8 RDW 14.2 Plt Count 165 D MPV 7.9 Absolute Neuts (auto) 3.5 Neutrophils % 66.1 Lymphocytes % 21.2 D Monocytes % 12.2 H Eosinophils % 0.1 D Basophils % 0.4 Nucleated RBC % 0 PT with INR 14.20 H INR 1.20 H PTT (Actin FS) 35.4 Sodium Potassium Chloride Carbon Dioxide Anion Gap BUN Creatinine Est GFR (CKD-EPI)AfAm Est GFR (CKD-EPI)NonAf Random Glucose Lactic Acid Calcium Total Bilirubin AST ALT Alkaline Phosphatase Total Protein Albumin Urine Color Yellow Urine Appearance Clear Urine pH 6.0 Ur Specific [place] 1.015 Urine Protein Negative Urine Glucose (UA) Negative Urine Ketones Negative Urine Blood Negative Urine Nitrite Negative Urine Bilirubin Negative Urine Urobilinogen 1.0 Ur Leukocyte Esterase Negative 09/29/19 09/29/19 15:32 15:36 WBC RBC Hgb Hct MCV MCH MCHC RDW Plt Count MPV Absolute Neuts (auto) Neutrophils % Lymphocytes % Monocytes % Eosinophils % Basophils % Nucleated RBC % PT with INR INR PTT (Actin FS) Sodium 135 L Potassium 3.9 Chloride 102 Carbon Dioxide 27 Anion Gap 6 L BUN 12.9 Creatinine 1.1 Est GFR (CKD-EPI)AfAm 108.32 Est GFR (CKD-EPI)NonAf 93.46 Random Glucose 83 Lactic Acid 1.0 Calcium 9.1 Total Bilirubin 0.4 AST 18 ALT 19 Alkaline Phosphatase 42 L Total Protein 7.6 Albumin 4.0 Urine Color Urine Appearance Urine pH Ur Specific [place] Urine Protein Urine Glucose (UA) Urine Ketones Urine Blood Urine Nitrite Urine Bilirubin Urine Urobilinogen Ur Leukocyte Esterase HOSPITAL COURSE: Date of Admission:09/29/19 Patient was admitted for I&D of gluteal abscess by Dr Yu. Pt was given IV Cef and flagyl and vanco given in ED for this abscess along with I&D. 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 Pt has been stable enough for discharge after I&D no longer febrile and sent home on flagyl and bactrim po with close follow up with surgery. Pt was provided a PCP at the [facility] across the street. Pt knows to follow up in 1 week to PCP. Date of Discharge: 09/30/19 Minutes to complete discharge: 35 Discharge Summary Problems reviewed: Yes Reason For Visit: ABSCESS AND CELLULITIS OF GLUTEAL REGION Current Active Problems Cellulitis and abscess of buttock (Acute) Condition: Good - Instructions Diet, Activity, Other Instructions: Diet: Resume Home Diet with high fiber. Activity: Resume Home Activity You were admitted due to perirectal abscess and were evaluated by your surgeon and determined not to require drainage. You are to followp with the resident clinic in [address] Yu in 1 week. Your abscess was worse because you didn't take your antibiotics. The most affordable regimine has been chosen for you for a 10-day course and sent to the hospital pharmacy. You will have the opportunity to speak with social work prior to DC. Referrals: Dorian Gonzalze MD [Staff Physician] - Disposition: HOME - Home Medications Comprehensive Discharge Medication List: Ambulatory Orders Cephalexin [Keflex] 500 mg PO QID 10 Days #40 capsule 09/30/19 metroNIDAZOLE [Metronidazole] 500 mg PO TID 10 Days tablet 09/30/19 This patient is new to me today: No Emergency Visit: Yes ED Registration Date: 09/29/19 Care time: The patient presented to the Emergency Department on the above date and was hospitalized for further evaluation of their emergent condition. Critical Care patient: No - Discharge Referral Referred to [facility] No ATTENDING PHYSICIAN STATEMENT I saw and evaluated the patient. I reviewed the resident's note and discussed the case with the resident. I agree with the resident's findings and plan as documented. SUBJECTIVE: OBJECTIVE: ASSESSMENT AND PLAN:
[2019-09-30 12:23] VITALS: BP 115/63; PULSE 68
--- NOTE | 2019-09-30 12:45 | PN ---
Teaching Attending Note Name of Resident: Shashi Juárez ATTENDING PHYSICIAN STATEMENT I saw and evaluated the patient. I reviewed the resident's note and discussed the case with the resident. I agree with the resident's findings and plan as documented. Seen and examined; please see resident note for further historical information. I personally verified all wolfe historical information and exam findings. Personally interpreted all imaging and diagnostics and reviewed appropriate consults. I reviewed all labs and vital signs as per resident note and EMR as documented. I agree with the above assessment and plan unless supplemented by myself in the following. Patient is hemodynamically stable and afebrile. I spoke with the surgery service at length this morning. It turns out that they never recommended for the patient to be admitted. A note was written that stated that the patient did not require inpatient management that they will actually be able to be managed with outpatient follow-up. They will be discharged home on p.o. antibiotics. They were counseled that [facility] will provide him with the doses. They will complete a 10-day course. They were given IV antibiotics before they went home. Surgery confirmed that there is no need for inpatient surgical debridement. The patient is not having any signs of sepsis or worsening pain. Their physical exam is stable. They will be able to get discharged home with follow-up with Dr. Yu in 1 week, they were referred to the resident clinic for 3-day follow-up to ensure the wound is healing properly and that the antibiotics are being tolerated. They will be able to be discharged on a high-fiber diet and be continue with her home activity level. I agree with the other activities and information delineated in the resident discharge summary aside from a supplemented by myself in this documentation. 10 item review of systems completed and is negative aside from as discussed in the subjective data in my own/the resident documentation. VS, labs, imaging reviewed NAD, AAO, resting comfortably in bed. RRR s1/2 no mgr Normal muscle tone, moves all 5 extremities with normal apparent strength Neck is supple, trachea midline, no tamie LN Lungs CTAB with sym expansion NT ND +BS no tamie organomegaly CN2-12 wnl; no FND NC AT EOMI PERRLA Normal mood, appropriate behavior, euthymic affect No skin breakdown or rashes noted =
--- NOTE | 2019-09-30 14:27 | EKG ---
Test Reason : Blood Pressure : / mmHG Vent. Rate : 078 BPM Atrial Rate : 078 BPM P-R Int : 108 ms QRS Dur : 090 ms QT Int : 358 ms P-R-T Axes : 049 077 064 degrees QTc Int : 408 ms SINUS RHYTHM WITH SHORT CO OTHERWISE NORMAL ECG WHEN COMPARED WITH ECG OF 28-JUN-2019 22:55, NO SIGNIFICANT CHANGE WAS FOUND Confirmed by JACEK KNOX MD ([id number]) on 09/30/2019 2:27:20 PM Referred By: Confirmed By:JACEK KNOX MD
== END 2019-09-30 12:41 | disposition home or self-care (01) | DRG 383 ==
LOC: JER 14:02 → JERBED 17:23
PROVIDERS: ATTEND Internal Medicine
PROC: 0H98XZZ Drainage of Buttock Skin, External Approach (ICD-10-PCS; principal; 2019-09-29)
DX: L02.31 Cutaneous abscess of buttock (principal); J45.909 Unspecified asthma, uncomplicated; R50.9 Fever, unspecified
CPT/HCPCS: 36415; 80053; 81003; 83605; 85025; 85610; 85730; 87040; 87086; 93005; 93010; 99284-25; J7030